=== PATIENT | male | born 1955 | race Caucasian/White ===

== ENCOUNTER 2021-05-15 09:00 | Inpatient (IN) ==
[2021-05-15] MEDS ORDERED: GLUCAGON 1 MG VIAL IM PRN (09:04)
[2021-05-15] MEDS ORDERED: DEXTROSE 50% 25 GM/50 ML VIAL IV PRN (09:04)
[2021-05-15] MEDS ORDERED: LOPERAMIDE 2 MG CAPSULE PO PRN (10:35)
[2021-05-15 10:48] LABS: ABG HCO3 22.7 MMOL/L (20-26); ABG Oxygen Saturation 95.9 % (95-100); ABG PCO2 34.7 MM HG (35-48); ABG PO2 82.1 MM HG (80-95); ABG TCO2 19.3 MMOL/L (23-27)
[2021-05-15 10:52] LABS: Basophils # 0.1 10*3/uL (0.0-0.2); Basophils % 0.7 % (0.0-0.8); Eosinophils # 0.5 10*3/uL (0.0-0.87); Eosinophils % 3.6 % (0.00-10.9); Hematocrit 38.7 VOL% (42.0-52.0); Hemoglobin 12.9 GM/DL (14.0-18.0); Immature Granulocytes % 2.4 %; Immature Granulocytes Absolute 0.33 #; Lymphocytes # 1.4 10*3/uL (1.4-4.0); Lymphocytes % 10.4 % (21.2-54.2); Mean Corpuscular HGB Conc 33.3 GM/DL (32-36); Mean Corpuscular Volume 98.2 FL (87-102); Monocytes % 7.1 % (1.7-12.7); Neutrophils % 75.8 % (38.7-73.9); Platelet Count 414 T/CUMM (130-400); Red Blood Count 3.94 MC/CUMM (3.8-5.5); Red Cell Distribution Width 13.2 % (9.3-17.3); White Blood Count 13.6 T/CUMM (4-12)
[2021-05-15] MEDS ORDERED: NITROGLYCERIN SL 0.4 MG TABLET SL PRN (11:12)
[2021-05-15 11:19] LABS: Albumin 3.9 G/DL (3.4-5.0); Bilirubin,Total 0.6 MG/DL (0.20-1.00); Calcium 9.5 MG/DL (8.5-10.1); Osmolality,Calculated 272.7 MOS/KG (273-304); Potassium 4.8 MMOL/L (3.5-5.1); Total Protein 8.9 G/DL (6.4-8.2)
[2021-05-15] MEDS: CHLORHEXIDINE 0.12% ORAL RINSE 60 ML BOTTLE SWISH/SPIT SCH ×2 (11:27→20:44)
[2021-05-15] MEDS: CLORAZEPATE 3.75 MG TABLET PO PRN ×2 (13:32→21:10)
[2021-05-15] MEDS: CHLORHEXIDINE 4% SOLN 118 ML BOTTLE TOP SCH ×2 (15:18→20:45)
[2021-05-15] MEDS: ASCORBIC ACID 500 MG TABLET PO SCH (20:42)
[2021-05-15] MEDS ORDERED: gemfibroziL 600 MG TABLET PO SCH (21:00)
[2021-05-15] MEDS ORDERED: traZODone 50 MG TABLET PO SCH (21:00)
[2021-05-15] MEDS ORDERED: ROSUVASTATIN 20 MG TABLET PO SCH (21:00)
[2021-05-16] MEDS: CHLORHEXIDINE 4% SOLN 118 ML BOTTLE TOP SCH ×2 (04:30→12:08)
[2021-05-16] MEDS ORDERED: PAPAVERINE 60 MG/2 ML VIAL ONE (04:43)
[2021-05-16] MEDS ORDERED: VANCOMYCIN 500 MG VIAL ONE (04:43)
[2021-05-16] MEDS ORDERED: VANCOMYCIN 1,000 MG VIAL ONE (04:43)
[2021-05-16] MEDS ORDERED: CEFUROXIME INJ 1,500 MG in SODIUM CHLORIDE 0.9% 100 ML IV ONE (05:00)
[2021-05-16 05:20] LABS: Calcium 8.5 MG/DL (8.5-10.1); Osmolality,Calculated 277.4 MOS/KG (273-304); Potassium 4.6 MMOL/L (3.5-5.1)
[2021-05-16] MEDS ORDERED: LACTATED RINGERS 1,000 ML IV ONE ×2 (05:50→14:44)
[2021-05-16] MEDS ORDERED: CALCIUM CHLORIDE 1,000 MG/10 ML VIAL IV ONE ×2 (05:50→10:40)
[2021-05-16] MEDS ORDERED: NITROGLYCERIN DRIP 50 MG/250 ML BOTTLE IV ONE (05:50)
[2021-05-16] MEDS ORDERED: PHENYLEPHRINE DRIP 20 MG/250 ML PREMIX IV ONE (05:50)
[2021-05-16] MEDS ORDERED: LIDOCAINE 2% 5 ML VIAL ONE ×2 (05:50→10:39)
[2021-05-16] MEDS ORDERED: SEVOFLURANE 1 UNIT/15 MINUTE INH ONE (05:50)
[2021-05-16] MEDS ORDERED: SODIUM CHLORIDE 0.9% 1,000 ML IV ONE (05:50)
[2021-05-16] MEDS ORDERED: VECURONIUM 10 MG VIAL IV ONE (05:50)
[2021-05-16] MEDS ORDERED: ePHEDrine 50 MG/ML VIAL ONE (05:50)
[2021-05-16] MEDS ORDERED: SODIUM CHLORIDE 0.9% 250 ML IV ONE (05:50)
[2021-05-16] MEDS ORDERED: HEPARIN/NACL 0.9% 2 UNITS/ML 1,000 UNIT/500 ML BAG IV ONE (05:50)
[2021-05-16] MEDS ORDERED: ETOMIDATE 40 MG/20 ML VIAL IV ONE (05:50)
[2021-05-16] MEDS ORDERED: MINERAL OIL/PETROLATUM OPH OINT 3.5 GM TUBE ONE (05:50)
[2021-05-16] MEDS ORDERED: SUFentanil 250 MCG/5 ML AMP ONE (05:51)
[2021-05-16] MEDS ORDERED: MIDAZOLAM 10 MG/2 ML VIAL ONE ×3 (05:51)
[2021-05-16] MEDS ORDERED: AMINOCAPROIC ACID 5,000 MG/20 ML VIAL ONE (05:52)
[2021-05-16] MEDS ORDERED: FAMOTIDINE 20 MG TABLET PO ONE (06:00)
[2021-05-16] MEDS ORDERED: DIAZEPAM 5 MG TABLET PO ONE (06:00)
[2021-05-16] MEDS ORDERED: SODIUM BICARBONATE 50 MEQ/50 ML VIAL IV ONE ×2 (07:00→10:40)
[2021-05-16] MEDS ORDERED: PHENYLEPHRINE DRIP 40 MG/250 ML PREMIX IV ONE (07:00)
[2021-05-16] MEDS ORDERED: POTASSIUM CHLORIDE RIDER 20 MEQ/100 ML PREMIX IV ONE (07:00)
[2021-05-16] MEDS ORDERED: NITROPRUSSIDE 50 MG/2 ML VIAL ONE (07:00)
[2021-05-16] MEDS ORDERED: CALCIUM CHLORIDE 1,000 MG/10 ML SYRINGE IV ONE (07:00)
[2021-05-16] MEDS ORDERED: FUROSEMIDE 20 MG/2 ML VIAL ONE ×2 (07:26→10:40)
[2021-05-16 07:36] LABS: ABG Base Excess -4.2 MMOL/L (-2.5-2.5); ABG Oxygen Saturation 99.8 % (95-100); ABG PCO2 40.7 MM HG (35-48); ABG PH 7.331 (7.35-7.45); ABG TCO2 19.4 MMOL/L (23-27); Glucose Heart Surgery 116 MG/DL (74-106); Hematocrit Heart Surgery 34.5 PERCENT (42-52); Hemoglobin Heart Surgery 11.2 G/DL (14.0-18.0); Ionized Calcium Arterial 1.09 MMOL/L (1.21-1.46); PCO2 Patient Temp Arterial 40.7 MMHG; PH Patient Temp Arterial 7.331; Patient Temperature 37 CELCIUS; Sodium Heart/CVR 135 MMOL/L (135-145)
[2021-05-16 07:51] LABS: Bacteria,Urine Occasional /HPF (Few); Bilirubin,Urine Negative (Negative); Blood, Urine Negative (Negative); Glucose,Urine (UA) Negative (Negative); Hyaline Casts,Urine 3 /LPF (0-3); Ketones,Urine Negative (Negative); Nitrite,Urine Negative (Negative); Protein,Urine Negative; RBC,Urine 2 /HPF (0-4); Urine Appearance CLEAR (Clear); Urine Color Yellow (Yellow); Urine Urobilinogen < 2.0 EU/DL (0.2-1.0)
[2021-05-16 09:17] LABS: Hemoglobin Heart Surgery 8.9 G/DL (14.0-18.0); PCO2 Patient Temp Venous 37.8 MM HG; PH Patient Temp Venous 7.391; PO2 Patient Temp Venous 35.2 MM HG; Potassium Heart/CVR 4.2 MMOL/L (3.5-5.1); VBG Base Excess -2.4 MEQ/L (0-4); VBG HCO3 23.2 MEQ/L (24-28); VBG Oxygen Saturation 76.2 %; VBG PCO2 43.1 MMHG (41-51); VBG PH 7.348; VBG PO2 43.5 MMHG (17-40); VBG Total CO2 24.5 MMOL/L
[2021-05-16 09:43] LABS: Hemoglobin Heart Surgery 9.2 G/DL (14.0-18.0); PCO2 Patient Temp Venous 35.6 MM HG; PH Patient Temp Venous 7.449; Potassium Heart/CVR 4.5 MMOL/L (3.5-5.1); VBG Base Excess 0.2 MEQ/L (0-4); VBG HCO3 24.9 MEQ/L (24-28); VBG Oxygen Saturation 78.7 %; VBG PCO2 40.6 MMHG (41-51); VBG PH 7.405; VBG PO2 43.3 MMHG (17-40); VBG Total CO2 26.1 MMOL/L
[2021-05-16] MEDS ORDERED: ESMOLOL 100 MG/10 ML VIAL IV ONE (09:54)
[2021-05-16 10:39] LABS: ABG Base Excess -1.6 MMOL/L (-2.5-2.5); ABG PCO2 44.1 MM HG (35-48); ABG PH 7.354 (7.35-7.45); ABG PO2 331.5 MM HG (80-95); ABG TCO2 25.4 MMOL/L (23-27); Glucose Heart Surgery 175 MG/DL (74-106); Hemoglobin Heart Surgery 10.4 G/DL (14.0-18.0); Ionized Calcium Arterial 1.23 MMOL/L (1.21-1.46); PCO2 Patient Temp Arterial 44.1 MMHG; PH Patient Temp Arterial 7.354; PO2 Patient Temp Arterial 331.5 MM HG; Patient Temperature 37 CELCIUS; Potassium Heart/CVR 3.9 MMOL/L (3.5-5.1); Sodium Heart/CVR 128 MMOL/L (135-145)
[2021-05-16] MEDS ORDERED: ALBUMIN 25% 25 GM/100 ML VIAL IV ONE (10:39)
[2021-05-16] MEDS ORDERED: HEPARIN 10,000 UNIT/10 ML VIAL ONE (10:39)
[2021-05-16] MEDS ORDERED: DEXTROSE 5% KCL 20 MEQ 20 MEQ/1,000 ML BAG IV ONE (10:39)
[2021-05-16] MEDS ORDERED: MAGNESIUM SULFATE 5 GM/10 ML VIAL IV ONE (10:39)
[2021-05-16] MEDS ORDERED: methylPREDNISolone SOD SUC 1,000 MG/8 ML VIAL ONE (10:39)
[2021-05-16] MEDS ORDERED: PROTAMINE SULFATE 250 MG/25 ML VIAL IV ONE (10:39)
[2021-05-16] MEDS ORDERED: MANNITOL 100 GM/500 ML BAG IV ONE (10:39)
[2021-05-16] MEDS ORDERED: PROTAMINE SULFATE 50 MG/5 ML VIAL IV ONE (10:40)
[2021-05-16] MEDS ORDERED: MIDAZOLAM 10 MG/2 ML VIAL IV PRN (10:49)
[2021-05-16] MEDS ORDERED: CHLORHEXIDINE 4% SOLN 118 ML BOTTLE TOP PRN (10:49)
[2021-05-16] MEDS ORDERED: ONDANSETRON 4 MG/2 ML VIAL IV PRN (10:49)
[2021-05-16] MEDS ORDERED: ACETAMINOPHEN 650 MG SUPP RECTAL PRN (10:49)
[2021-05-16] MEDS ORDERED: PHENYLEPHRINE DRIP 40 MG/250 ML PREMIX IV PRN (10:49)
[2021-05-16] MEDS ORDERED: MIDAZOLAM 2 MG/2 ML VIAL IV PRN (10:49)
[2021-05-16] MEDS ORDERED: POTASSIUM CHLORIDE RIDER 20 MEQ/100 ML PREMIX IV PRN (10:49)
[2021-05-16] MEDS ORDERED: CALCIUM CHLORIDE 1,000 MG/10 ML SYRINGE IV PRN (10:49)
[2021-05-16] MEDS ORDERED: POTASSIUM CHLORIDE RIDER 10 MEQ/100 ML PREMIX IV PRN (10:49)
[2021-05-16] MEDS ORDERED: INSULIN REGULAR 100 UNIT/ML IV ONE (10:49)
[2021-05-16] MEDS ORDERED: MAGNESIUM SULF RIDER 4 GM/100 ML PREMIX IV PRN (10:49)
[2021-05-16] MEDS ORDERED: MAGNESIUM SULF RIDER 2 GM/50 ML PREMIX IV PRN (10:49)
[2021-05-16] MEDS ORDERED: NITROPRUSSIDE 100 MG in DEXTROSE 5% 250 ML IV PRN (10:49)
[2021-05-16] MEDS ORDERED: DEXTROSE 50% 25 GM/50 ML VIAL IV PRN ×2 (10:49)
[2021-05-16] MEDS ORDERED: VECURONIUM 10 MG VIAL IV PRN ×2 (10:49)
[2021-05-16] MEDS ORDERED: SODIUM CHLORIDE 0.45% 1,000 ML IV SCH ×2 (11:00)
[2021-05-16] MEDS ORDERED: INSULIN REGULAR DRIP 100 ML IV SCH (11:00)
[2021-05-16] MEDS ORDERED: THROMBIN TOPICAL (RECOMBINANT) 5,000 UNIT VIAL TOP ONE (11:23)
[2021-05-16 11:59] LABS: ABG Base Excess -1.2 MMOL/L (-2.5-2.5); ABG HCO3 23.7 MMOL/L (20-26); ABG Oxygen Saturation 98.4 % (95-100); ABG PCO2 40.4 MM HG (35-48); ABG PH 7.386 (7.35-7.45); ABG PO2 155.8 MM HG (80-95); ABG TCO2 24.9 MMOL/L (23-27); Glucose Heart Surgery 139 MG/DL (74-106); Hemoglobin Heart Surgery 10.5 G/DL (14.0-18.0); Potassium Heart/CVR 4.6 MMOL/L (3.5-5.1)
[2021-05-16] MEDS: SODIUM CHLORIDE 0.9% 1,000 ML IV SCH ×2 (12:08→12:09)
[2021-05-16] MEDS: ASCORBIC ACID 500 MG TABLET PO SCH (12:09)
[2021-05-16] MEDS: CHLORHEXIDINE 0.12% ORAL RINSE 60 ML BOTTLE SWISH/SPIT SCH ×2 (12:09→20:26)
[2021-05-16 12:23] LABS: Basophils # 0.1 10*3/uL (0.0-0.2); Basophils % 0.3 % (0.0-0.8); Eosinophils # 0.2 10*3/uL (0.0-0.87); Eosinophils % 1.5 % (0.00-10.9); Hematocrit 29.5 VOL% (42.0-52.0); Hemoglobin 9.7 GM/DL (14.0-18.0); Immature Granulocytes % 2.3 %; Immature Granulocytes Absolute 0.37 #; Lymphocytes # 0.7 10*3/uL (1.4-4.0); Lymphocytes % 4.6 % (21.2-54.2); Mean Corpuscular HGB Conc 32.9 GM/DL (32-36); Mean Corpuscular Volume 98.7 FL (87-102); Monocytes % 3.5 % (1.7-12.7); Neutrophils % 87.8 % (38.7-73.9); Platelet Count 308 T/CUMM (130-400); Red Blood Count 2.99 MC/CUMM (3.8-5.5); Red Cell Distribution Width 13.2 % (9.3-17.3); White Blood Count 16.2 T/CUMM (4-12)
[2021-05-16 12:31] LABS: INR 1.2; PT Patient Result 12.8 SECS (10.5-12.0); Partial Thromboplastin Time 31.2 SECS (23.9-33.8)
[2021-05-16 12:45] LABS: Anisocytosis 1+; Band Neutrophils 18 % (0-10); Eosinophils 4 % (0-10); Lymphocytes 4 % (20-55); Macrocytosis 1+; Platelet Estimate Normal; Segmented Neutrophils 70 % (50-85); Total Cells Counted 100
[2021-05-16] MEDS: ALBUMIN 5% 12.5 GM/250 ML VIAL IV PRN ×4 (13:03→14:28)
[2021-05-16 13:11] LABS: CKMB % 7.4 %
[2021-05-16 13:13] LABS: High Sensitive Troponin I* 2892.8 ng/L (0-78)
[2021-05-16 13:19] LABS: Albumin 3.6 G/DL (3.4-5.0); Bilirubin,Total 0.8 MG/DL (0.20-1.00); Calcium 9.7 MG/DL (8.5-10.1); Osmolality,Calculated 277.4 MOS/KG (273-304); Potassium 4.7 MMOL/L (3.5-5.1); Total Protein 6.8 G/DL (6.4-8.2)
[2021-05-16] MEDS: LACTATED RINGERS 250 ML IV PRN ×4 (13:51→14:38)
[2021-05-16] MEDS: MORPHINE 10 MG/1 ML VIAL IV PRN ×3 (13:56→23:46)
[2021-05-16] MEDS ORDERED: METOPROLOL TARTRATE 25 MG TABLET PO ONE (14:05)
[2021-05-16] MEDS: METOPROLOL TARTRATE 25 MG TABLET PO SCH ×2 (14:25→20:26)
[2021-05-16 14:35] LABS: ABG Base Excess -4.3 MMOL/L (-2.5-2.5); ABG HCO3 20.8 MMOL/L (20-26); ABG Oxygen Saturation 97.7 % (95-100); ABG PCO2 37.9 MM HG (35-48); ABG PH 7.349 (7.35-7.45); ABG TCO2 19.3 MMOL/L (23-27); Glucose Heart Surgery 215 MG/DL (74-106); Hematocrit Heart Surgery 27.6 PERCENT (42-52); Hemoglobin Heart Surgery 8.9 G/DL (14.0-18.0)
[2021-05-16 17:28] LABS: ABG Base Excess 0.1 MMOL/L (-2.5-2.5); ABG Oxygen Saturation 97.8 % (95-100); ABG PH 7.441 (7.35-7.45); ABG PO2 107.4 MM HG (80-95); ABG TCO2 25.1 MMOL/L (23-27); Glucose Heart Surgery 208 MG/DL (74-106); Hemoglobin Heart Surgery 10.6 G/DL (14.0-18.0); Potassium Heart/CVR 4.6 MMOL/L (3.5-5.1)
[2021-05-16 18:17] LABS: ABG Base Excess -0.3 MMOL/L (-2.5-2.5); ABG HCO3 24.2 MMOL/L (20-26); ABG Oxygen Saturation 97.4 % (95-100); ABG PH 7.462 (7.35-7.45); ABG PO2 86.5 MM HG (80-95); ABG TCO2 20.7 MMOL/L (23-27); Glucose Heart Surgery 219 MG/DL (74-106); Hematocrit Heart Surgery 31.7 PERCENT (42-52); Hemoglobin Heart Surgery 10.3 G/DL (14.0-18.0); Potassium Heart/CVR 4.6 MMOL/L (3.5-5.1)
[2021-05-16] MEDS: CEFUROXIME INJ 1,500 MG in SODIUM CHLORIDE 0.9% 100 ML IV SCH (18:22)
[2021-05-16 19:29] LABS: ABG Base Excess 0.3 MMOL/L (-2.5-2.5); ABG HCO3 24.7 MMOL/L (20-26); ABG Oxygen Saturation 96.9 % (95-100); ABG PCO2 28.1 MM HG (35-48); ABG PH 7.508 (7.35-7.45); ABG PO2 78.9 MM HG (80-95); ABG TCO2 19.7 MMOL/L (23-27); Glucose Heart Surgery 222 MG/DL (74-106); Hematocrit Heart Surgery 36.7 PERCENT (42-52); Hemoglobin Heart Surgery 11.9 G/DL (14.0-18.0); Potassium Heart/CVR 4.3 MMOL/L (3.5-5.1)
[2021-05-16 19:53] LABS: CKMB % 7.3 %; High Sensitive Troponin I* 2843.8 ng/L (0-78)
[2021-05-16] MEDS: INSULIN REGULAR 100 UNIT/ML IV PRN ×2 (20:17→22:12)
[2021-05-16 20:55] LABS: ABG Base Excess -2.2 MMOL/L (-2.5-2.5); ABG HCO3 22.5 MMOL/L (20-26); ABG Oxygen Saturation 95.6 % (95-100); ABG PCO2 34.2 MM HG (35-48); ABG PH 7.412 (7.35-7.45); ABG PO2 78.6 MM HG (80-95); ABG TCO2 19.7 MMOL/L (23-27); Glucose Heart Surgery 209 MG/DL (74-106); Hemoglobin Heart Surgery 10.4 G/DL (14.0-18.0); Potassium Heart/CVR 3.8 MMOL/L (3.5-5.1)
[2021-05-16] MEDS ORDERED: ALBUTEROL/IPRATROPIUM 3 ML NEB RESP TX PRN (21:18)
[2021-05-16] MEDS ORDERED: FUROSEMIDE 20 MG/2 ML VIAL IV ONE (21:19)
[2021-05-17 00:46] LABS: ABG Base Excess -0.1 MMOL/L (-2.5-2.5); ABG HCO3 24.3 MMOL/L (20-26); ABG Oxygen Saturation 93.9 % (95-100); ABG PCO2 38.7 MM HG (35-48); ABG PH 7.407 (7.35-7.45); ABG PO2 71.5 MM HG (80-95); ABG TCO2 22.1 MMOL/L (23-27); Glucose Heart Surgery 155 MG/DL (74-106); Hematocrit Heart Surgery 31.7 PERCENT (42-52); Hemoglobin Heart Surgery 10.3 G/DL (14.0-18.0); Potassium Heart/CVR 3.8 MMOL/L (3.5-5.1)
[2021-05-17] MEDS: MORPHINE 10 MG/1 ML VIAL IV PRN ×2 (02:57→05:49)
[2021-05-17 03:07] LABS: Basophils % 0.1 % (0.0-0.8); Hematocrit 29.6 VOL% (42.0-52.0); Hemoglobin 9.9 GM/DL (14.0-18.0); Immature Granulocytes % 1.4 %; Immature Granulocytes Absolute 0.32 #; Lymphocytes # 0.5 10*3/uL (1.4-4.0); Lymphocytes % 2.3 % (21.2-54.2); Mean Corpuscular HGB Conc 33.4 GM/DL (32-36); Mean Corpuscular Volume 95.5 FL (87-102); Mean Platelet Volume 9.1 FL (9.6-12.0); Neutrophils % 93.2 % (38.7-73.9); Platelet Count 292 T/CUMM (130-400); Red Cell Distribution Width 13.4 % (9.3-17.3); White Blood Count 22.5 T/CUMM (4-12)
[2021-05-17 03:12] LABS: ABG Base Excess 0.5 MMOL/L (-2.5-2.5); ABG HCO3 24.8 MMOL/L (20-26); ABG Oxygen Saturation 93.3 % (95-100); ABG PCO2 37.7 MM HG (35-48); ABG PH 7.424 (7.35-7.45); ABG PO2 69.9 MM HG (80-95); ABG TCO2 21.6 MMOL/L (23-27); Glucose Heart Surgery 152 MG/DL (74-106); Hematocrit Heart Surgery 39.5 PERCENT (42-52); Hemoglobin Heart Surgery 12.8 G/DL (14.0-18.0); Potassium Heart/CVR 3.8 MMOL/L (3.5-5.1)
[2021-05-17 03:27] LABS: Band Neutrophils 5 % (0-10); Lymphocytes 1 % (20-55); Metamyelocytes 2 %; Segmented Neutrophils 90 % (50-85); Total Cells Counted 100
[2021-05-17 03:28] LABS: CKMB % 5.5 %; High Sensitive Troponin I* 3232.8 ng/L (0-78); Hypochromasia 1+; Platelet Estimate Normal
[2021-05-17 05:50] LABS: Bilirubin,Direct 0.27 MG/DL (0.0-0.20); Bilirubin,Total 0.7 MG/DL (0.20-1.00); Calcium 8.8 MG/DL (8.5-10.1); Osmolality,Calculated 282.8 MOS/KG (273-304); Potassium 3.9 MMOL/L (3.5-5.1); Total Protein 6.8 G/DL (6.4-8.2)
[2021-05-17] MEDS: CEFUROXIME INJ 1,500 MG in SODIUM CHLORIDE 0.9% 100 ML IV SCH ×2 (06:21→22:29)
[2021-05-17] MEDS: ASCORBIC ACID 500 MG TABLET PO SCH ×2 (08:03→21:13)
[2021-05-17] MEDS: FOLIC ACID 1 MG TABLET PO SCH (08:06)
[2021-05-17] MEDS: CHLORHEXIDINE 0.12% ORAL RINSE 60 ML BOTTLE SWISH/SPIT SCH ×3 (08:06→21:14)
[2021-05-17] MEDS: PANTOPRAZOLE 40 MG TABLET PO SCH (08:06)
[2021-05-17] MEDS: MULTIVITAMIN (CENTRUM) TABLET PO SCH (08:06)
[2021-05-17] MEDS: ASPIRIN EC 325 MG TABLET PO SCH (08:06)
[2021-05-17] MEDS: THIAMINE 100 MG TABLET PO SCH (08:06)
[2021-05-17] MEDS ORDERED: POTASSIUM CHLORIDE 20 MEQ TABLET PO PRN (08:13)
[2021-05-17] MEDS ORDERED: ONDANSETRON 4 MG/2 ML VIAL IV PRN (08:13)
[2021-05-17] MEDS ORDERED: ACETAMINOPHEN 325 MG TABLET PO PRN (08:13)
[2021-05-17] MEDS ORDERED: MAGNESIUM HYDROXIDE SUSP 30 ML UDCUP PO PRN (08:13)
[2021-05-17] MEDS ORDERED: MAGNESIUM SULF RIDER 2 GM/50 ML PREMIX IV PRN (08:13)
[2021-05-17] MEDS ORDERED: MAGNESIUM SULF RIDER 4 GM/100 ML PREMIX IV PRN (08:13)
[2021-05-17] MEDS ORDERED: ALUMINUM/MAGNES/SIMETH MAX STR 30 ML UDCUP PO PRN (08:13)
[2021-05-17] MEDS: SODIUM CHLOR 0.45% KCL 20 MEQ 20 MEQ/1,000 ML BAG IV SCH (08:24)
[2021-05-17] MEDS: DOCUSATE SODIUM 100 MG CAPSULE PO SCH (08:25)
[2021-05-17] MEDS: FERROUS SULFATE 325 MG TABLET PO SCH (08:25)
[2021-05-17] MEDS ORDERED: METOPROLOL TARTRATE 25 MG TABLET PO SCH (09:00)
[2021-05-17] MEDS ORDERED: ALBUMIN 5% 25.0 GM/500 ML VIAL IV ONE (11:36)
[2021-05-17] MEDS: ALBUMIN 5% 12.5 GM/250 ML VIAL IV PRN ×2 (11:40→12:28)
[2021-05-17] MEDS: INSULIN LISPRO 100 UNIT/ML SUBCUT SCH ×3 (12:08→21:12)
[2021-05-17] MEDS: oxyCODONE/ACETAMINOPHEN 5-325 MG TABLET PO PRN ×2 (13:44→21:13)
[2021-05-17 15:22] LABS: CKMB % 3.9 %; High Sensitive Troponin I* 2713.5 ng/L (0-78)
[2021-05-17] MEDS: ROSUVASTATIN 20 MG TABLET PO SCH (21:21)
[2021-05-17] MEDS: traZODone 50 MG TABLET PO SCH (21:21)
[2021-05-17] MEDS ORDERED: CEFUROXIME INJ 1,500 MG in SODIUM CHLORIDE 0.9% 100 ML IV ONE (22:26)
[2021-05-18] MEDS ORDERED: PHENYLEPHRINE DRIP 40 MG/250 ML PREMIX IV PRN
[2021-05-18] MEDS ORDERED: PHENYLEPHRINE DRIP 40 MG/250 ML PREMIX IV ONE (00:05)
[2021-05-18 04:23] LABS: ABG Base Excess -1.4 MMOL/L (-2.5-2.5); ABG HCO3 23.1 MMOL/L (20-26); ABG Oxygen Saturation 86.9 % (95-100); ABG PCO2 35.3 MM HG (35-48); ABG PH 7.416 (7.35-7.45); ABG PO2 55.1 MM HG (80-95); ABG TCO2 20.9 MMOL/L (23-27)
[2021-05-18 04:39] LABS: Basophils % 0.1 % (0.0-0.8); Hematocrit 26.5 VOL% (42.0-52.0); Hemoglobin 8.7 GM/DL (14.0-18.0); Immature Granulocytes % 2.3 %; Immature Granulocytes Absolute 0.54 #; Lymphocytes # 0.7 10*3/uL (1.4-4.0); Lymphocytes % 2.8 % (21.2-54.2); Mean Corpuscular HGB Conc 32.8 GM/DL (32-36); Mean Corpuscular Volume 97.8 FL (87-102); Mean Platelet Volume 9.1 FL (9.6-12.0); Neutrophils % 90.8 % (38.7-73.9); Platelet Count 286 T/CUMM (130-400); Red Blood Count 2.71 MC/CUMM (3.8-5.5); Red Cell Distribution Width 13.5 % (9.3-17.3); White Blood Count 23.6 T/CUMM (4-12)
[2021-05-18 05:04] LABS: Albumin 3.5 G/DL (3.4-5.0); Bilirubin,Direct 0.14 MG/DL (0.0-0.20); Bilirubin,Total 0.4 MG/DL (0.20-1.00); Calcium 8.5 MG/DL (8.5-10.1); Osmolality,Calculated 290.5 MOS/KG (273-304); Potassium 3.9 MMOL/L (3.5-5.1)
[2021-05-18 05:05] LABS: Albumin 3.6 G/DL (3.4-5.0); Bilirubin,Direct 0.11 MG/DL (0.0-0.20); Bilirubin,Indirect 0.3 MG/DL (0.0-1.0); Bilirubin,Total 0.4 MG/DL (0.20-1.00); CKMB % 2.8 %; High Sensitive Troponin I* 2103.6 ng/L (0-78); Total Protein 7.1 G/DL (6.4-8.2)
[2021-05-18 05:36] LABS: Band Neutrophils 1 % (0-10); Hypochromasia Slight; Lymphocytes 3 % (20-55); Platelet Estimate Normal; Segmented Neutrophils 93 % (50-85); Total Cells Counted 100
[2021-05-18] MEDS ORDERED: FUROSEMIDE 40 MG/4 ML VIAL IV ONE (06:00)
[2021-05-18] MEDS: INSULIN LISPRO 100 UNIT/ML SUBCUT SCH ×4 (07:30→21:18)
[2021-05-18] MEDS ORDERED: ALBUTEROL/IPRATROPIUM 3 ML NEB RESP TX PRN (08:00)
[2021-05-18] MEDS: SODIUM CHLOR 0.45% KCL 20 MEQ 20 MEQ/1,000 ML BAG IV SCH (08:30)
[2021-05-18] MEDS: methylPREDNISolone SOD SUC 40 MG/1 ML VIAL IV SCH ×3 (08:40→22:20)
[2021-05-18] MEDS: MULTIVITAMIN (CENTRUM) TABLET PO SCH (08:40)
[2021-05-18] MEDS: FERROUS SULFATE 325 MG TABLET PO SCH (08:40)
[2021-05-18] MEDS: ASCORBIC ACID 500 MG TABLET PO SCH ×2 (08:40→21:16)
[2021-05-18] MEDS: FOLIC ACID 1 MG TABLET PO SCH (08:40)
[2021-05-18] MEDS: PANTOPRAZOLE 40 MG TABLET PO SCH (08:40)
[2021-05-18] MEDS: ASPIRIN EC 325 MG TABLET PO SCH (08:40)
[2021-05-18] MEDS: DOCUSATE SODIUM 100 MG CAPSULE PO SCH ×2 (08:40→21:17)
[2021-05-18] MEDS: POLYETHYLENE GLYCOL POWDER 17 GM PACK PO SCH (08:40)
[2021-05-18] MEDS: THIAMINE 100 MG TABLET PO SCH (08:41)
[2021-05-18] MEDS: CHLORHEXIDINE 0.12% ORAL RINSE 60 ML BOTTLE SWISH/SPIT SCH ×2 (08:43→21:18)
[2021-05-18] MEDS: oxyCODONE/ACETAMINOPHEN 5-325 MG TABLET PO PRN ×2 (08:49→21:18)
[2021-05-18] MEDS ORDERED: NEBIVOLOL 5 MG TABLET PO SCH (09:00)
[2021-05-18] MEDS: traZODone 50 MG TABLET PO SCH (21:17)
[2021-05-18] MEDS: ROSUVASTATIN 20 MG TABLET PO SCH (21:18)
[2021-05-19] MEDS: ZALEPLON 5 MG CAPSULE PO PRN ×2 (00:26→20:26)
[2021-05-19] MEDS: oxyCODONE/ACETAMINOPHEN 5-325 MG TABLET PO PRN ×3 (02:20→20:30)
[2021-05-19 04:40] LABS: Basophils % 0.1 % (0.0-0.8); Hematocrit 26.4 VOL% (42.0-52.0); Hemoglobin 8.4 GM/DL (14.0-18.0); Immature Granulocytes % 4.2 %; Immature Granulocytes Absolute 0.91 #; Lymphocytes # 0.9 10*3/uL (1.4-4.0); Lymphocytes % 3.9 % (21.2-54.2); Mean Corpuscular HGB Conc 31.8 GM/DL (32-36); Mean Corpuscular Volume 99.6 FL (87-102); Mean Platelet Volume 9.5 FL (9.6-12.0); Monocytes % 4.4 % (1.7-12.7); Neutrophils % 87.4 % (38.7-73.9); Platelet Count 306 T/CUMM (130-400); Red Blood Count 2.65 MC/CUMM (3.8-5.5); Red Cell Distribution Width 13.4 % (9.3-17.3); White Blood Count 21.9 T/CUMM (4-12)
[2021-05-19 04:58] LABS: Alanine Aminotransferase 19 U/L (16-61); Albumin 3.3 G/DL (3.4-5.0); Alkaline Phosphatase 68 U/L (45-117); Aspartate Amino Transferase 19 U/L (0-37); Bilirubin,Indirect 0.7 MG/DL (0.0-1.0); Total Protein 7.1 G/DL (6.4-8.2)
[2021-05-19 05:01] LABS: Band Neutrophils 1 % (0-10); Hypochromasia 1+; Lymphocytes 6 % (20-55); Microcytosis 1+; Platelet Estimate Adequate; Segmented Neutrophils 90 % (50-85); Total Cells Counted 100
[2021-05-19 05:19] LABS: Alanine Aminotransferase 18 U/L (16-61); Albumin 3.3 G/DL (3.4-5.0); Alkaline Phosphatase 67 U/L (45-117); Aspartate Amino Transferase 19 U/L (0-37); Bilirubin,Total < 0.39 MG/DL (0.20-1.00); Blood Urea Nitrogen 55 MG/DL (7-18); Calcium 8.2 MG/DL (8.5-10.1); Carbon Dioxide 24 MMOL/L (21-32); Estimated Glom Filtration Rate 49 ML/MIN; Glucose 124 MG/DL (74-106); Osmolality,Calculated 296.3 MOS/KG (273-304); Potassium 4.1 MMOL/L (3.5-5.1); Sodium 141 MMOL/L (136-145); Total Protein 6.4 G/DL (6.4-8.2)
[2021-05-19] MEDS: methylPREDNISolone SOD SUC 40 MG/1 ML VIAL IV SCH ×3 (06:08→22:09)
[2021-05-19] MEDS: INSULIN LISPRO 100 UNIT/ML SUBCUT SCH ×4 (07:30→21:57)
[2021-05-19] MEDS: DOCUSATE SODIUM 100 MG CAPSULE PO SCH ×2 (08:20→20:26)
[2021-05-19] MEDS: FOLIC ACID 1 MG TABLET PO SCH (08:20)
[2021-05-19] MEDS: PANTOPRAZOLE 40 MG TABLET PO SCH (08:20)
[2021-05-19] MEDS: MULTIVITAMIN (CENTRUM) TABLET PO SCH (08:20)
[2021-05-19] MEDS: ASPIRIN EC 325 MG TABLET PO SCH (08:20)
[2021-05-19] MEDS: THIAMINE 100 MG TABLET PO SCH (08:20)
[2021-05-19] MEDS: FERROUS SULFATE 325 MG TABLET PO SCH (08:20)
[2021-05-19] MEDS: ASCORBIC ACID 500 MG TABLET PO SCH ×2 (08:20→20:26)
[2021-05-19] MEDS: POLYETHYLENE GLYCOL POWDER 17 GM PACK PO SCH (08:20)
[2021-05-19] MEDS: CHLORHEXIDINE 0.12% ORAL RINSE 60 ML BOTTLE SWISH/SPIT SCH ×2 (08:25→20:31)
[2021-05-19] MEDS: ROSUVASTATIN 20 MG TABLET PO SCH (20:26)
[2021-05-19] MEDS: traZODone 50 MG TABLET PO SCH (20:30)
[2021-05-20] MEDS: ZALEPLON 5 MG CAPSULE PO PRN ×2 (00:31→21:28)
[2021-05-20] MEDS: methylPREDNISolone SOD SUC 40 MG/1 ML VIAL IV SCH ×3 (05:30→21:34)
[2021-05-20 05:34] LABS: Basophils % 0.1 % (0.0-0.8); Hematocrit 33.4 VOL% (42.0-52.0); Immature Granulocytes % 0.5 %; Immature Granulocytes Absolute 0.06 #; Lymphocytes # 0.8 10*3/uL (1.4-4.0); Mean Corpuscular Volume 106.4 FL (87-102); Mean Platelet Volume 11.5 FL (9.6-12.0); Monocytes % 11.6 % (1.7-12.7); Neutrophils % 80.8 % (38.7-73.9); Red Blood Count 3.14 MC/CUMM (3.8-5.5)
[2021-05-20 05:55] LABS: Osmolality,Calculated 293.3 MOS/KG (273-304); Potassium 4.5 MMOL/L (3.5-5.1)
[2021-05-20 06:16] LABS: Hemoglobin 10.7 GM/DL (14.0-18.0); Platelet Count 114 T/CUMM (130-400)
[2021-05-20 06:20] LABS: Band Neutrophils 1 % (0-10); Hypochromasia Slight; Lymphocytes 3 % (20-55); Microcytosis Slight; Platelet Estimate Decreased; Segmented Neutrophils 88 % (50-85); Total Cells Counted 100
[2021-05-20] MEDS: oxyCODONE/ACETAMINOPHEN 5-325 MG TABLET PO PRN ×3 (06:24→21:29)
[2021-05-20] MEDS: INSULIN LISPRO 100 UNIT/ML SUBCUT SCH ×4 (08:41→21:35)
[2021-05-20] MEDS: FOLIC ACID 1 MG TABLET PO SCH (10:02)
[2021-05-20] MEDS: METOPROLOL TARTRATE 25 MG TABLET PO SCH (10:02)
[2021-05-20] MEDS: ASCORBIC ACID 500 MG TABLET PO SCH ×2 (10:03→21:28)
[2021-05-20] MEDS: PANTOPRAZOLE 40 MG TABLET PO SCH (10:03)
[2021-05-20] MEDS: THIAMINE 100 MG TABLET PO SCH (10:03)
[2021-05-20] MEDS: MULTIVITAMIN (CENTRUM) TABLET PO SCH (10:03)
[2021-05-20] MEDS: ASPIRIN EC 325 MG TABLET PO SCH (10:03)
[2021-05-20] MEDS: FERROUS SULFATE 325 MG TABLET PO SCH (10:04)
[2021-05-20] MEDS: CHLORHEXIDINE 0.12% ORAL RINSE 60 ML BOTTLE SWISH/SPIT SCH ×2 (10:04→21:34)
[2021-05-20] MEDS: POLYETHYLENE GLYCOL POWDER 17 GM PACK PO SCH (10:04)
[2021-05-20] MEDS: DOCUSATE SODIUM 100 MG CAPSULE PO SCH (10:04)
[2021-05-20] MEDS: ALBUTEROL/IPRATROPIUM 3 ML NEB RESP TX SCH ×2 (13:10→20:37)
[2021-05-20] MEDS: ROSUVASTATIN 20 MG TABLET PO SCH (21:28)
[2021-05-20] MEDS: traZODone 50 MG TABLET PO SCH (21:35)
[2021-05-21] MEDS: ALBUTEROL/IPRATROPIUM 3 ML NEB RESP TX SCH ×4 (02:58→20:11)
[2021-05-21] MEDS: methylPREDNISolone SOD SUC 40 MG/1 ML VIAL IV SCH (05:37)
[2021-05-21 05:43] LABS: Basophils % 0.2 % (0.0-0.8); Hematocrit 28.5 VOL% (42.0-52.0); Hemoglobin 9.4 GM/DL (14.0-18.0); Immature Granulocytes % 7.4 %; Immature Granulocytes Absolute 1.54 #; Lymphocytes # 1.2 10*3/uL (1.4-4.0); Lymphocytes % 5.9 % (21.2-54.2); Mean Corpuscular Volume 97.6 FL (87-102); Mean Platelet Volume 9.5 FL (9.6-12.0); Monocytes % 4.7 % (1.7-12.7); NRBC # 0.03 10*3/uL; Neutrophils % 81.8 % (38.7-73.9); Red Blood Count 2.92 MC/CUMM (3.8-5.5); Red Cell Distribution Width 13.2 % (9.3-17.3)
[2021-05-21 05:47] LABS: Alanine Aminotransferase 69 U/L (16-61); Albumin 3.2 G/DL (3.4-5.0); Alkaline Phosphatase 92 U/L (45-117); Aspartate Amino Transferase 39 U/L (0-37); Bilirubin,Indirect 0.3 MG/DL (0.0-1.0); Blood Urea Nitrogen 48 MG/DL (7-18); Calcium 8.8 MG/DL (8.5-10.1); Carbon Dioxide 21 MMOL/L (21-32); Estimated Glom Filtration Rate 72 ML/MIN; Glucose 105 MG/DL (74-106); Osmolality,Calculated 295.1 MOS/KG (273-304); Potassium 4.5 MMOL/L (3.5-5.1); Sodium 142 MMOL/L (136-145); Total Protein 7.6 G/DL (6.4-8.2)
[2021-05-21 05:57] LABS: White Blood Count 20.9 T/CUMM (4-12)
[2021-05-21 05:58] LABS: Platelet Count 431 T/CUMM (130-400)
[2021-05-21 06:04] LABS: Band Neutrophils 1 % (0-10); Hypochromasia 1+; Lymphocytes 11 % (20-55); Microcytosis 1+; Nucleated Red Blood Cells 1 (0-5); Platelet Estimate Adequate; Segmented Neutrophils 85 % (50-85); Total Cells Counted 100
[2021-05-21] MEDS: oxyCODONE/ACETAMINOPHEN 5-325 MG TABLET PO PRN ×4 (06:32→21:41)
[2021-05-21] MEDS: INSULIN LISPRO 100 UNIT/ML SUBCUT SCH ×4 (08:38→23:06)
[2021-05-21] MEDS ORDERED: methylPREDNISolone SOD SUC 40 MG/1 ML VIAL IV ONE (09:35)
[2021-05-21] MEDS: FOLIC ACID 1 MG TABLET PO SCH (10:22)
[2021-05-21] MEDS: MULTIVITAMIN (CENTRUM) TABLET PO SCH (10:22)
[2021-05-21] MEDS: PANTOPRAZOLE 40 MG TABLET PO SCH (10:22)
[2021-05-21] MEDS: METOPROLOL TARTRATE 25 MG TABLET PO SCH (10:22)
[2021-05-21] MEDS: ASPIRIN EC 325 MG TABLET PO SCH (10:22)
[2021-05-21] MEDS: ASCORBIC ACID 500 MG TABLET PO SCH ×2 (10:22→21:40)
[2021-05-21] MEDS: DOCUSATE SODIUM 100 MG CAPSULE PO SCH (10:22)
[2021-05-21] MEDS: THIAMINE 100 MG TABLET PO SCH (10:23)
[2021-05-21] MEDS: POLYETHYLENE GLYCOL POWDER 17 GM PACK PO SCH (10:23)
[2021-05-21] MEDS: CHLORHEXIDINE 0.12% ORAL RINSE 60 ML BOTTLE SWISH/SPIT SCH ×2 (10:23→21:41)
[2021-05-21] MEDS: FERROUS SULFATE 325 MG TABLET PO SCH (10:23)
[2021-05-21] MEDS: ZALEPLON 5 MG CAPSULE PO PRN (21:40)
[2021-05-21] MEDS: ROSUVASTATIN 20 MG TABLET PO SCH (21:40)
[2021-05-21] MEDS: traZODone 50 MG TABLET PO SCH (23:06)
[2021-05-22] MEDS: ALBUTEROL/IPRATROPIUM 3 ML NEB RESP TX SCH ×4 (00:27→19:20)
[2021-05-22] MEDS: oxyCODONE/ACETAMINOPHEN 5-325 MG TABLET PO PRN ×5 (02:22→22:18)
[2021-05-22 05:12] LABS: Basophils % 0.2 % (0.0-0.8); Eosinophils # 0.2 10*3/uL (0.0-0.87); Eosinophils % 0.9 % (0.00-10.9); Hematocrit 27.8 VOL% (42.0-52.0); Hemoglobin 8.8 GM/DL (14.0-18.0); Immature Granulocytes % 8.3 %; Immature Granulocytes Absolute 1.51 #; Lymphocytes # 2.3 10*3/uL (1.4-4.0); Lymphocytes % 12.7 % (21.2-54.2); Mean Corpuscular HGB Conc 31.7 GM/DL (32-36); Mean Platelet Volume 9.5 FL (9.6-12.0); Monocytes % 5.5 % (1.7-12.7); NRBC # 0.04 10*3/uL; Neutrophils % 72.4 % (38.7-73.9); Platelet Count 426 T/CUMM (130-400); Red Blood Count 2.78 MC/CUMM (3.8-5.5); Red Cell Distribution Width 13.4 % (9.3-17.3); White Blood Count 18.2 T/CUMM (4-12)
[2021-05-22 05:32] LABS: Calcium 8.6 MG/DL (8.5-10.1); Osmolality,Calculated 293.1 MOS/KG (273-304); Potassium 4.1 MMOL/L (3.5-5.1)
[2021-05-22 05:37] LABS: Alanine Aminotransferase 75 U/L (16-61); Alkaline Phosphatase 87 U/L (45-117); Aspartate Amino Transferase 33 U/L (0-37); Bilirubin,Indirect 0.3 MG/DL (0.0-1.0); Blood Urea Nitrogen 47 MG/DL (7-18); Calcium 8.7 MG/DL (8.5-10.1); Carbon Dioxide 22 MMOL/L (21-32); Estimated Glom Filtration Rate 64 ML/MIN; Glucose 86 MG/DL (74-106); Potassium 3.8 MMOL/L (3.5-5.1); Sodium 143 MMOL/L (136-145); Total Protein 6.8 G/DL (6.4-8.2)
[2021-05-22 05:39] LABS: Hypochromasia 1+; Lymphocytes 11 % (20-55); Microcytosis 1+; Platelet Estimate Adequate; Segmented Neutrophils 81 % (50-85); Total Cells Counted 100
[2021-05-22] MEDS: INSULIN LISPRO 100 UNIT/ML SUBCUT SCH ×4 (08:36→21:02)
[2021-05-22] MEDS: METOPROLOL TARTRATE 25 MG TABLET PO SCH ×2 (08:38→20:56)
[2021-05-22] MEDS: MULTIVITAMIN (CENTRUM) TABLET PO SCH (08:38)
[2021-05-22] MEDS: ASCORBIC ACID 500 MG TABLET PO SCH ×2 (08:38→20:55)
[2021-05-22] MEDS: PANTOPRAZOLE 40 MG TABLET PO SCH (08:38)
[2021-05-22] MEDS: hydroCHLOROthiazide 12.5 MG CAPSULE PO SCH (08:38)
[2021-05-22] MEDS: DOCUSATE SODIUM 100 MG CAPSULE PO SCH (08:39)
[2021-05-22] MEDS: FOLIC ACID 1 MG TABLET PO SCH (08:39)
[2021-05-22] MEDS: THIAMINE 100 MG TABLET PO SCH (08:39)
[2021-05-22] MEDS: predniSONE 20 MG TABLET PO SCH ×2 (08:39→20:55)
[2021-05-22] MEDS: POLYETHYLENE GLYCOL POWDER 17 GM PACK PO SCH (08:39)
[2021-05-22] MEDS: FERROUS SULFATE 325 MG TABLET PO SCH (08:39)
[2021-05-22] MEDS: ASPIRIN EC 325 MG TABLET PO SCH (08:39)
[2021-05-22] MEDS: CHLORHEXIDINE 0.12% ORAL RINSE 60 ML BOTTLE SWISH/SPIT SCH ×2 (08:39→21:02)
[2021-05-22] MEDS: ROSUVASTATIN 20 MG TABLET PO SCH (20:55)
[2021-05-22] MEDS: traZODone 50 MG TABLET PO SCH (21:01)
[2021-05-22] MEDS: ZALEPLON 5 MG CAPSULE PO PRN (22:17)
[2021-05-23] MEDS: ALBUTEROL/IPRATROPIUM 3 ML NEB RESP TX SCH ×4 (00:27→19:05)
[2021-05-23] MEDS: oxyCODONE/ACETAMINOPHEN 5-325 MG TABLET PO PRN ×4 (04:05→21:20)
[2021-05-23 04:44] LABS: Calcium 8.9 MG/DL (8.5-10.1); Osmolality,Calculated 286.5 MOS/KG (273-304); Potassium 4.4 MMOL/L (3.5-5.1)
[2021-05-23 04:55] LABS: Basophils # 0.1 10*3/uL (0.0-0.2); Basophils % 0.2 % (0.0-0.8); Eosinophils # 0.1 10*3/uL (0.0-0.87); Eosinophils % 0.5 % (0.00-10.9); Hemoglobin 9.1 GM/DL (14.0-18.0); Immature Granulocytes % 6.9 %; Immature Granulocytes Absolute 1.53 #; Lymphocytes # 1.5 10*3/uL (1.4-4.0); Lymphocytes % 6.7 % (21.2-54.2); Mean Corpuscular HGB Conc 32.5 GM/DL (32-36); Mean Corpuscular Volume 99.3 FL (87-102); Mean Platelet Volume 9.4 FL (9.6-12.0); Monocytes % 3.7 % (1.7-12.7); NRBC # 0.03 10*3/uL; Platelet Count 451 T/CUMM (130-400); Red Blood Count 2.82 MC/CUMM (3.8-5.5); Red Cell Distribution Width 13.4 % (9.3-17.3); White Blood Count 22.2 T/CUMM (4-12)
[2021-05-23 05:14] LABS: Band Neutrophils 3 % (0-10); Hypochromasia Slight; Lymphocytes 6 % (20-55); Metamyelocytes 2 %; Microcytosis 1+; Myelocytes 2 %; Segmented Neutrophils 80 % (50-85); Total Cells Counted 100
[2021-05-23 05:15] LABS: Platelet Estimate Increased; Polychromasia Slight
[2021-05-23] MEDS: ASPIRIN EC 325 MG TABLET PO SCH (08:22)
[2021-05-23] MEDS: ASCORBIC ACID 500 MG TABLET PO SCH ×2 (08:22→21:20)
[2021-05-23] MEDS: PANTOPRAZOLE 40 MG TABLET PO SCH (08:22)
[2021-05-23] MEDS: POLYETHYLENE GLYCOL POWDER 17 GM PACK PO SCH (08:22)
[2021-05-23] MEDS: FOLIC ACID 1 MG TABLET PO SCH (08:22)
[2021-05-23] MEDS: predniSONE 20 MG TABLET PO SCH ×2 (08:22→21:20)
[2021-05-23] MEDS: DOCUSATE SODIUM 100 MG CAPSULE PO SCH (08:22)
[2021-05-23] MEDS: CHLORHEXIDINE 0.12% ORAL RINSE 60 ML BOTTLE SWISH/SPIT SCH ×2 (08:23→21:21)
[2021-05-23] MEDS: MULTIVITAMIN (CENTRUM) TABLET PO SCH (08:23)
[2021-05-23] MEDS: THIAMINE 100 MG TABLET PO SCH (08:23)
[2021-05-23] MEDS: FERROUS SULFATE 325 MG TABLET PO SCH (08:23)
[2021-05-23] MEDS: hydroCHLOROthiazide 12.5 MG CAPSULE PO SCH (08:23)
[2021-05-23] MEDS: METOPROLOL TARTRATE 25 MG TABLET PO SCH ×2 (08:23→21:20)
[2021-05-23] MEDS: INSULIN LISPRO 100 UNIT/ML SUBCUT SCH ×4 (08:24→21:21)
[2021-05-23] MEDS: ZALEPLON 5 MG CAPSULE PO PRN (21:20)
[2021-05-23] MEDS: traZODone 50 MG TABLET PO SCH (21:21)
[2021-05-23] MEDS: ROSUVASTATIN 20 MG TABLET PO SCH (21:21)
[2021-05-24] MEDS: ALBUTEROL/IPRATROPIUM 3 ML NEB RESP TX SCH ×2 (00:15→07:08)
[2021-05-24] MEDS: oxyCODONE/ACETAMINOPHEN 5-325 MG TABLET PO PRN ×2 (03:19→09:14)
[2021-05-24 05:11] LABS: Basophils # 0.1 10*3/uL (0.0-0.2); Basophils % 0.2 % (0.0-0.8); Eosinophils # 0.1 10*3/uL (0.0-0.87); Eosinophils % 0.6 % (0.00-10.9); Hemoglobin 9.3 GM/DL (14.0-18.0); Immature Granulocytes % 5.7 %; Immature Granulocytes Absolute 1.27 #; Lymphocytes # 1.3 10*3/uL (1.4-4.0); Lymphocytes % 5.6 % (21.2-54.2); Mean Corpuscular HGB Conc 32.1 GM/DL (32-36); Mean Platelet Volume 9.5 FL (9.6-12.0); Monocytes % 3.7 % (1.7-12.7); NRBC # 0.03 10*3/uL; Neutrophils % 84.2 % (38.7-73.9); Platelet Count 440 T/CUMM (130-400); Red Cell Distribution Width 13.5 % (9.3-17.3); White Blood Count 22.4 T/CUMM (4-12)
[2021-05-24 05:31] LABS: Calcium 9.1 MG/DL (8.5-10.1); Osmolality,Calculated 288.4 MOS/KG (273-304); Potassium 4.2 MMOL/L (3.5-5.1)
[2021-05-24 05:34] LABS: Hypochromasia 1+; Lymphocytes 9 % (20-55); Microcytosis 1+; Platelet Estimate Adequate; Segmented Neutrophils 89 % (50-85); Total Cells Counted 100
[2021-05-24] MEDS: INSULIN LISPRO 100 UNIT/ML SUBCUT SCH ×2 (08:30→11:40)
[2021-05-24] MEDS: hydroCHLOROthiazide 12.5 MG CAPSULE PO SCH (09:13)
[2021-05-24] MEDS: DOCUSATE SODIUM 100 MG CAPSULE PO SCH (09:13)
[2021-05-24] MEDS: MULTIVITAMIN (CENTRUM) TABLET PO SCH (09:13)
[2021-05-24] MEDS: ASPIRIN EC 325 MG TABLET PO SCH (09:13)
[2021-05-24] MEDS: POLYETHYLENE GLYCOL POWDER 17 GM PACK PO SCH (09:13)
[2021-05-24] MEDS: ASCORBIC ACID 500 MG TABLET PO SCH (09:13)
[2021-05-24] MEDS: predniSONE 20 MG TABLET PO SCH (09:13)
[2021-05-24] MEDS: FOLIC ACID 1 MG TABLET PO SCH (09:14)
[2021-05-24] MEDS: FERROUS SULFATE 325 MG TABLET PO SCH (09:14)
[2021-05-24] MEDS: THIAMINE 100 MG TABLET PO SCH (09:14)
[2021-05-24] MEDS: METOPROLOL TARTRATE 25 MG TABLET PO SCH (09:14)
[2021-05-24] MEDS: CHLORHEXIDINE 0.12% ORAL RINSE 60 ML BOTTLE SWISH/SPIT SCH (09:15)
[2021-05-24] MEDS: PANTOPRAZOLE 40 MG TABLET PO SCH (09:15)
[2021-05-24 11:57] VITALS: BP 126/65
== END 2021-05-24 12:32 | disposition home health service (06) | DRG 236 ==
LOC: N.TELES 09:00 → N.CVR 05-16 11:06 → N.ICU 05-17 14:47 → N.TELES 05-19 13:05

== ENCOUNTER 2021-05-26 20:17 | Observation (INO) ==
[2021-05-26 22:27] LABS: Basophils % 0.2 % (0.0-0.8); Eosinophils # 0.2 10*3/uL (0.0-0.87); Hemoglobin 9.5 GM/DL (14.0-18.0); Immature Granulocytes % 3.5 %; Immature Granulocytes Absolute 0.68 #; Lymphocytes # 1.5 10*3/uL (1.4-4.0); Lymphocytes % 7.8 % (21.2-54.2); Mean Corpuscular HGB Conc 33.9 GM/DL (32-36); Mean Corpuscular Volume 94.6 FL (87-102); Mean Platelet Volume 9.1 FL (9.6-12.0); Monocytes % 3.9 % (1.7-12.7); NRBC # 0.04 10*3/uL; Neutrophils % 83.6 % (38.7-73.9); Platelet Count 442 T/CUMM (130-400); Red Blood Count 2.96 MC/CUMM (3.8-5.5); Red Cell Distribution Width 13.6 % (9.3-17.3); White Blood Count 19.4 T/CUMM (4-12)
[2021-05-26 22:59] LABS: Bilirubin,Total 0.6 MG/DL (0.20-1.00); Calcium 8.9 MG/DL (8.5-10.1); Osmolality,Calculated 278.2 MOS/KG (273-304); Total Protein 6.9 G/DL (6.4-8.2)
[2021-05-26] MEDS ORDERED: AMIODARONE INJ 150 MG in DEXTROSE 5% 100 ML IV ONE (23:14)
[2021-05-26] MEDS ORDERED: POTASSIUM CHLORIDE 20 MEQ TABLET PO STA (23:15)
[2021-05-26] MEDS ORDERED: ONDANSETRON 4 MG/2 ML VIAL IV PRN (23:18)
[2021-05-26] MEDS ORDERED: MORPHINE 2 MG/1 ML SYRINGE IV PRN (23:18)
[2021-05-26] MEDS ORDERED: MAGNESIUM SULF RIDER 4 GM/100 ML PREMIX IV PRN (23:18)
[2021-05-26] MEDS ORDERED: MAGNESIUM SULF RIDER 2 GM/50 ML PREMIX IV PRN (23:18)
[2021-05-26] MEDS ORDERED: ACETAMINOPHEN 325 MG TABLET PO PRN (23:18)
[2021-05-26 23:29] LABS: Band Neutrophils 1 % (0-10); Eosinophils 1 % (0-10); Lymphocytes 7 % (20-55); Segmented Neutrophils 88 % (50-85); Total Cells Counted 100
[2021-05-26 23:30] LABS: Atypical Lymphocytes Few; Hypochromasia 1+; Reactive Lymphocytes 1+
[2021-05-26 23:31] LABS: Platelet Estimate Increased; Polychromasia Few
[2021-05-27] MEDS ORDERED: INFLUENZA VIRUS VACCINE 0.5 ML SYRINGE IM ONE (01:29)
[2021-05-27 06:02] LABS: Basophils % 0.2 % (0.0-0.8); Eosinophils # 0.3 10*3/uL (0.0-0.87); Eosinophils % 1.4 % (0.00-10.9); Hematocrit 26.6 VOL% (42.0-52.0); Immature Granulocytes % 3.1 %; Immature Granulocytes Absolute 0.65 #; Lymphocytes # 1.8 10*3/uL (1.4-4.0); Lymphocytes % 8.4 % (21.2-54.2); Mean Corpuscular HGB Conc 33.8 GM/DL (32-36); Mean Corpuscular Volume 95.7 FL (87-102); Mean Platelet Volume 9.2 FL (9.6-12.0); Monocytes % 4.1 % (1.7-12.7); NRBC # 0.03 10*3/uL; Neutrophils % 82.8 % (38.7-73.9); Platelet Count 414 T/CUMM (130-400); Red Blood Count 2.78 MC/CUMM (3.8-5.5); Red Cell Distribution Width 13.5 % (9.3-17.3); White Blood Count 21.2 T/CUMM (4-12)
[2021-05-27 06:25] LABS: Albumin 2.7 G/DL (3.4-5.0); Bilirubin,Total 1.2 MG/DL (0.20-1.00); Potassium 3.3 MMOL/L (3.5-5.1); Total Protein 6.6 G/DL (6.4-8.2)
[2021-05-27 07:12] LABS: Anisocytosis 2+; Band Neutrophils 4 % (0-10); Eosinophils 2 % (0-10); Lymphocytes 12 % (20-55); Platelet Estimate Normal; Segmented Neutrophils 79 % (50-85); Total Cells Counted 100
[2021-05-27] MEDS ORDERED: oxyCODONE/ACETAMINOPHEN 5-325 MG TABLET PO PRN (08:48)
[2021-05-27] MEDS ORDERED: ASPIRIN EC 325 MG TABLET PO SCH (09:00)
[2021-05-27] MEDS ORDERED: CHOLECALCIFEROL 1,000 UNIT TABLET PO SCH (09:00)
[2021-05-27] MEDS ORDERED: hydroCHLOROthiazide 25 MG TABLET PO SCH (09:00)
[2021-05-27] MEDS ORDERED: CLINDAMYCIN 300 MG CAPSULE PO SCH (09:00)
[2021-05-27] MEDS ORDERED: CYANOCOBALAMIN 500 MCG TABLET PO SCH (09:00)
[2021-05-27] MEDS ORDERED: ASCORBIC ACID 500 MG TABLET PO SCH (09:00)
[2021-05-27] MEDS ORDERED: PANTOPRAZOLE 40 MG TABLET PO SCH (09:00)
[2021-05-27] MEDS ORDERED: AMIODARONE 200 MG TABLET PO SCH (09:00)
[2021-05-27] MEDS ORDERED: predniSONE 20 MG TABLET PO SCH (09:00)
[2021-05-27] MEDS ORDERED: METOPROLOL TARTRATE 25 MG TABLET PO SCH (09:00)
[2021-05-27 12:25] VITALS: BP 120/64
[2021-05-27] MEDS ORDERED: ROSUVASTATIN 20 MG TABLET PO SCH (21:00)
[2021-05-27] MEDS ORDERED: traZODone 50 MG TABLET PO SCH (21:00)
[2021-05-29] MEDS ORDERED: predniSONE 10 MG TABLET PO SCH (09:00)
[2021-06-01] MEDS ORDERED: predniSONE 5 MG TABLET PO SCH (09:00)
== END 2021-05-27 13:35 | disposition home health service (06) ==
LOC: EDUNIT# → EDBD → N.ED 20:17 → N.EDINP 20:17 → N.TELES 05-27 00:59